=== PATIENT | female | born 1980 | race Two or more races ===

== ENCOUNTER 2016-06-09 08:01 | Outpatient (CLI) | payer MEDICAID ==
[~2016-06-09 08:01] MED LIST: FERRIC CARBOXYMALTOSE 750 MG in NORMAL SALINE 250 ML IV PRN; NORMAL SALINE 250 ML IV PRN
== END 2016-06-09 09:26 | disposition home or self-care (01) ==
LOC: II 08:01 → 5TH 08:10 → II 09:26
PROVIDERS: ATTEND Specialist
DX: D50.8 Other iron deficiency anemias (principal); K90.9 Intestinal malabsorption, unspecified
CPT/HCPCS: 96367; J7050; J1439

== ENCOUNTER 2016-06-16 08:16 | Outpatient (CLI) | payer MEDICAID ==
[2016-06-16 08:58] VITALS: BP 110/71
== END 2016-06-16 09:36 | disposition home or self-care (01) ==
LOC: II 08:16 → 5TH 08:19 → II 09:36
PROVIDERS: ATTEND Specialist
PROC: 3E033GC Introduction of Other Therapeutic Substance into Peripheral Vein, Percutaneous Approach (ICD-10-PCS; principal; 2016-06-16)
DX: D50.8 Other iron deficiency anemias (principal); K90.9 Intestinal malabsorption, unspecified
CPT/HCPCS: 96374; J7050; J1439; 96365; 96367

== ENCOUNTER 2016-07-14 21:33 | Emergency (ER) | payer MEDICAID ==
--- NOTE | 2016-07-15 00:37 | ER Document Report ---
ED General - General Chief Complaint: abdominal uribe Stated Complaint: ABDOMINAL PAIN Notes: Patient is a 36-year-old female who presents with concerns of lower abdominal pain and low back pain that has been present for the past 24 hours. Does describe the pain as a mild, dull, intermittent aching pain. Nothing improves or worsens her pain. States this feels exactly the same as when she began to have a miscarriage in the past and wanted to come to the emergency department to be sure that she was not actually having a miscarriage. She is not have any vaginal bleeding or discharge. No dysuria. She did make an appointment to see the OB clinic but they could not see her for one week so they came to the emergency department. TRAVEL OUTSIDE OF THE [place] IN LAST 30 DAYS: No - Related Data Allergies/Adverse Reactions: No Known Allergies Allergy (Verified 02/19/16 00:10) Past Medical History - General Information source: Patient - Social History Smoking Status: Never Smoker Frequency of alcohol use: None Drug Abuse: None Lives with: Spouse/Significant other Family History: CAD, Hyperlipidemia, Hypertension Patient has suicidal ideation: No Patient has homicidal ideation: No Renal/ Medical History: Denies: Hx Peritoneal Dialysis Musculoskeltal Medical History: Reports Hx Musculoskeletal Deformity Past Surgical History: Reports: Hx Orthopedic Surgery - left knee - Immunizations Hx Diphtheria, Pertussis, Tetanus Vaccination: No Review of Systems - Review of Systems Notes: Constitutional: Negative for fever. HENT: Negative for sore throat. Eyes: Negative for visual changes. Cardiovascular: Negative for chest pain. Respiratory: Negative for shortness of breath. Gastrointestinal: Positive for abdominal pain Genitourinary: Negative for dysuria. No vaginal bleeding Musculoskeletal: Positive for back pain. Skin: Negative for rash. Neurological: Negative for headaches, weakness or numbness. 10 point ROS negative except as marked above and in HPI. Physical Exam - Vital signs Vitals: Temp Pulse Resp BP Pulse Ox 97.7 F 71 18 110/66 99 07/14/16 21:42 07/14/16 21:42 07/14/16 21:42 07/14/16 21:42 07/14/16 21:42 Interpretation: Normal Notes: PHYSICAL EXAMINATION: GENERAL: Well-appearing, well-nourished and in no acute distress. HEAD: Atraumatic, normocephalic. EYES: Pupils equal round and reactive to light, extraocular movements intact, sclera anicteric, conjunctiva are normal. ENT: nares patent, oropharynx clear without exudates. Moist mucous membranes. NECK: Normal range of motion, supple without lymphadenopathy LUNGS: Breath sounds clear to auscultation bilaterally and equal. No wheezes rales or rhonchi. HEART: Regular rate and rhythm without murmurs ABDOMEN: Soft, nontender, normoactive bowel sounds. No guarding, no rebound. No masses appreciated. EXTREMITIES: Normal range of motion, no pitting or edema. No cyanosis. NEUROLOGICAL: No focal neurological deficits. Moves all extremities spontaneously and on command. PSYCH: Normal mood, normal affect. SKIN: Warm, Dry, normal turgor, no rashes or lesions noted. Course - Re-evaluation Re-evalutation: 07/15/16 00:36 Patient presents with mild lower abdominal cramping for the past 24 hours similar twinges had a miscarriage in the past. She has not had any vaginal bleeding. The bedside ultrasound shows intrauterine with no visible heart rate. I am likewise unable to Doppler a heart rate. Will send for transabdominal ultrasound to confirm what I suspect be a missed . 0240-ultrasound does confirm the patient likely has had a missed with no cardiac activity witnessed on formal ultrasound. This was discussed with the patient and her . I contacted Dr. De La Cruz the [employer] clinical operations leader who is requested that they follow-up in office on Sunday.patient has declined blood work saying she just was to go home. At this time will discharge with return precautions and follow-up recommendations. Verbal discharge instructions given a the bedside and opportunity for questions given. Medication warnings reviewed. Patient is in agreement with this plan and has verbalized understanding of return precautions and the need for primary care follow-up in the next 24-72 hours. - Vital Signs Vital signs: Temp Pulse Resp BP Pulse Ox 97.8 F 78 18 105/76 100 07/15/16 02:31 07/15/16 02:31 07/15/16 02:31 07/15/16 02:31 07/15/16 02:31 Discharge - Discharge Clinical Impression: Missed Condition: Fair Disposition: HOME, SELF-CARE Additional Instructions: Unfortunately, your no longer has a heart rate. This will go on to be a miscarriage. I am sorry for your loss. You may need assistance passing this . Please call the women's clinic at 8am on Sunday for follow-up. Please return if you develop severe abdominal pain, bleeding that goes through more than 2 pads for more than 2 hours, pass out, or have any other symptoms that are concerning to you. Please follow-up closely with your OBGYN regarding todays visit. Referrals: DUSTY DIXON MD [Primary Care Provider] - 07/17/16
[2016-07-15 02:32] VITALS: BP 105/76
== END 2016-07-15 02:36 | disposition home or self-care (01) ==
LOC: ER 21:33
DX: O02.1 Missed abortion (principal); R10.30 Lower abdominal pain, unspecified; M54.5 Low back pain
CPT/HCPCS: 76801; 99284

== ENCOUNTER 2016-07-20 16:23 | Observation (INO) | payer MEDICAID ==
[2016-07-20] MEDS ORDERED: RINGERS SOLUTION,LACTATED 1,000 ML IV PRN (16:44)
[2016-07-20] MEDS ORDERED: HYDROMORPHONE HCL INJ/PF 2 MG/ML AMPULE IV PRN (16:47)
[2016-07-20] MEDS ORDERED: ZOLPIDEM TARTRATE 5 MG TABLET PO PRN (17:21)
[2016-07-20 17:38] LABS: HEMATOCRIT 32.8 % (36.0-47.0); HEMOGLOBIN 11.5 g/dL (12.0-15.5); HGB HCT DIFFERENCE 1.7; MEAN CORPUSCULAR HEMOGLOBIN 29.3 pg (27.0-33.4); MEAN CORPUSCULAR HGB CONC 35.1 g/dL (32.0-36.0); MEAN CORPUSCULAR VOLUME 84 fl (80-97); RED BLOOD COUNT 3.92 10^6/uL (3.72-5.28); WHITE BLOOD COUNT 5.8 10^3/uL (4.0-10.5)
[2016-07-20] MEDS ORDERED: MISOPROSTOL 0.2 MG TABLET PV ONE (22:00)
[2016-07-21] MEDS: HYDROMORPHONE HCL INJ/PF 2 MG/ML AMPULE IV PRN ×2 (03:35→07:25)
[2016-07-21] MEDS ORDERED: MISOPROSTOL 0.2 MG TABLET PV ONE (06:45)
[2016-07-21] MEDS ORDERED: SUCCINYLCHOLINE CHLORIDE INJ 200 MG/10 ML VIAL ONE (07:49)
[2016-07-21] MEDS ORDERED: MISOPROSTOL 0.2 MG TABLET PR ONE (09:00)
[2016-07-21] MEDS ORDERED: PROPOFOL INJ 200 MG/20 ML VIAL IV ONE (13:22)
[2016-07-21] MEDS ORDERED: MIDAZOLAM 2 MG/2 ML INJ ONE (13:22)
[2016-07-21] MEDS ORDERED: DEXAMETHASONE SOD PHOSPHATE INJ 4 MG/1 ML VIAL ONE (13:22)
[2016-07-21] MEDS ORDERED: FENTANYL CITRATE INJ/PF 100 MCG/2 ML AMPUL ONE (13:22)
[2016-07-21] MEDS ORDERED: ONDANSETRON HCL INJ/PF 4 MG/2 ML SDV ONE (13:22)
[2016-07-21] MEDS ORDERED: DOXYCYCLINE HYCLATE 100 MG in DEXTROSE 5%-WATER 250 ML IV ONE (13:30)
[2016-07-21] MEDS ORDERED: MEPERIDINE HCL/PF INJ 25 MG/1 ML DISP.SYRIN IV PRN (13:51)
[2016-07-21] MEDS ORDERED: FENTANYL CITRATE INJ/PF 100 MCG/2 ML AMPUL IV PRN ×3 (13:51)
[2016-07-21] MEDS ORDERED: DIPHENHYDRAMINE HCL 50 MG/ML VIAL IV PRN (13:51)
[2016-07-21] MEDS ORDERED: PROMETHAZINE HCL INJ 25 MG/1 ML VIAL IV PRN ×2 (13:51)
[2016-07-21] MEDS ORDERED: METHYLERGONOVINE MALEATE INJ/PF 0.2 MG/1 ML AMPULE ONE (13:54)
--- NOTE | 2016-07-21 14:43 | OPERATIVE REPORT E ---
Operative Report NAME: PIOTR VILLA : 1980 AGE: 36Y DATE OF SURGERY: ROOM: 211 PREOPERATIVE DIAGNOSIS: Retained placenta. POSTOPERATIVE DIAGNOSIS: Retained placenta. OPERATION: Suction D and C. SURGEON: DUSTY DIXON M.D. FAX MACHINE REPAIRER: TOMMY ANESTHESIA: General endotracheal. ESTIMATED BLOOD LOSS: 50 mL; however, there were several hundred mL of blood loss prior to procedure. SPECIMEN TO PATHOLOGY: Placenta. FINDINGS: There was an enlarged uterus initially with placenta palpable at the cervical os. Postoperatively, the uterus involuted normally. There was a large amount of placental tissue that was removed during the D and C. PROCEDURE: After discussing risks, benefits, and alternatives of the procedure and obtaining informed consent, the patient was taken to the operating room, where general anesthesia was achieved. She was positioned in the dorsal lithotomy, prepped and draped in the usual standard fashion. The bladder was drained via in and out catheterization. Weighted speculum was placed in the posterior cul-de-sac. The anterior aspect of the cervix was grasped with a single tooth tenaculum. A small piece of placental tissue was noted at the cervical os, which was removed with a ringed forceps. A couple more pieces were removed in similar manner. Then, a #12 curved curette was used and suction D and C performed in the standard fashion. A large blunt curette was used to gently scrape the lining and a small amount of placental tissue on the right and the patient's right uterine sidewall was noted. Suction D and C was again performed, and then the cavity was clean. Methergine was given intramuscularly, and the uterus involuted. Bleeding was noted to be minimal at the end of the procedure. The patient was taken out of dorsal lithotomy, awakened from anesthesia and taken to recovery in stable condition. All sponge, needle, lap, and instrument counts were correct x2. DICTATING PHYSICIAN: DUSTY DIXON M.D. [id number] PHY#: [id number] ID: [id number] JOB#: [id number] ACCT: [id number] cc:DUSTY DIXON M.D. >
[2016-07-21] MEDS ORDERED: OXYCODONE-ACETAMINOPHEN 5-325 MG TABLET PO PRN ×2 (14:49→14:50)
[2016-07-21] MEDS ORDERED: IBUPROFEN 800 MG TABLET PO PRN (14:50)
--- NOTE | 2016-07-21 14:53 | HISTORY AND PHYSICAL E ---
History and Physical NAME: PIOTR VILLA : 1980 AGE: 36Y ADMITTED: 07/20/2016 ROOM: 211 INDICATION FOR ADMISSION: Missed . HISTORY OF PRESENT ILLNESS: The patient is a 36-year-old -0-1-4 with estimated gestational age of 15+ weeks by last menstrual period; however, in clinic she was found to have an intrauterine demise measuring 12 weeks 5 days by crown-rump length. However, on the ultrasound imaging the fetus was starting to curl inward slightly and may have been lost at a slightly later date than that. As noted, there had been no cardiac activity on ultrasound in the clinic. At the time of admission, the patient only had a small amount of spotting. She had a history of a loss where she hemorrhaged during the process and required emergent suction D and C for retained placenta. She had elected to have a more controlled delivery of this loss. On review of systems, she is otherwise without complaints. She had not been ill recently. PAST MEDICAL HISTORY: Unremarkable. PAST OB HISTORY: Four vaginal deliveries, one child with Down syndrome. She also had a history of a loss which would have been dated at around 15 weeks; however, was measured at about 13 weeks at the time of loss. She required suction D and C after that. ALLERGIES: Cinnamon. HABITS: The patient does not smoke, drink, or use illicit substances. FAMILY HISTORY: Noncontributory. OBJECTIVE: On admission, blood pressure was 114/67. She was afebrile. Heart rate was in the 70s. Weight 103 kg. In general, the patient appears comfortable and in no acute distress. Her abdomen was soft and nontender, and her cervix was closed on arrival. Extremities were nontender. ADMIT LABS: Hemoglobin 11.5, hematocrit 32.8, platelets 127,000. Hemoglobin A1c is 4.7. IMPRESSION: Missed AB at around 13 weeks gestation. PLAN: The patient is admitted for Cytotec induction and pain management. During this, she will have an IV in, and she is aware of the possibility of retained placenta requiring need for suction D and C. Will also send fetus for chromosomes, and maternal chromosomes given her recurrent loss. Will send also a lupus anticoagulant and anticardiolipin antibodies as well as antithrombin-III protein gene mutation factor, and Factor V Leiden. DICTATING PHYSICIAN: DUSTY DIXON M.D. [id number] PHY#: [id number] ID: [id number] JOB#: [id number] ACCT: [id number] cc:DUSTY DIXON M.D. >
--- NOTE | 2016-07-21 16:09 | PDOC PROGRESS REPORT ---
Subjective Progress Note for:: 07/21/16 Subjective:: seen at 1000am and again at 1200. Late entry note due to computer access issues. Physical Exam - Physical Exam Vital Signs: Temp Pulse Resp BP Pulse Ox 97.9 F 80 16 92/46 L 100 07/21/16 14:03 07/21/16 14:33 07/21/16 14:33 07/21/16 14:33 07/21/16 14:33 Intake & Output 07/20/16 07/21/16 07/22/16 06:59 06:59 06:59 Intake Total 600 300 Output Total 50 Balance 600 250 Weight 103 kg General appearance: PRESENT: no acute distress, well-developed, well-nourished Respiratory exam: PRESENT: clear to auscultation radha, symmetrical, unlabored. ABSENT: retraction, tachypnea Cardiovascular exam: PRESENT: RRR. ABSENT: diastolic murmur, rubs, systolic murmur Pulses: PRESENT: normal dorsalis pedis pul, +2 pedal pulses bilateral Vascular exam: PRESENT: normal capillary refill GI/Abdominal exam: PRESENT: normal bowel sounds, soft. ABSENT: distended, guarding, mass, organolmegaly, rebound, tenderness Rectal exam: PRESENT: deferred Extremities exam: PRESENT: full ROM. ABSENT: calf tenderness, clubbing, pedal edema Neurological exam: PRESENT: alert, awake, oriented to person, oriented to place , oriented to time, oriented to situation, CN II-XII grossly intact. ABSENT: motor sensory deficit Psychiatric exam: PRESENT: appropriate affect, normal mood. ABSENT: homicidal ideation, suicidal ideation Skin exam: PRESENT: dry, intact, warm. ABSENT: cyanosis, rash - Gynecological Exam Cervix: other - 2cm dilation, placenta stuck at os, fetus removed and sent to pathology. 800mcg cytotec placed per rectum then on re-eval 2 hours later approx 400ml of clot removed and significant bleeding with continued retained placenta. Result Laboratory Results: 07/20/16 17:20 07/20/16 07/20/16 17:20 17:20 WBC 5.8 RBC 3.92 Hgb 11.5 L Hct 32.8 L MCV 84 MCH 29.3 MCHC 35.1 RDW 18.0 H Plt Count 127 L Blood Type O POSITIVE Antibody Screen NEGATIVE Assessment & Plan - Diagnosis (1) Missed Is this a current diagnosis for this admission?: YesPlan: MAB with retained placenta. Reviewed significant ebl with pt and recommendations for Suction D&C and removal of placenta (fetus already delivered ). ATIII and Factor V and Prothrombin ordered. To OR for suction D&C. If stable post op then ok to discharge this evening. Will repeat CBC post op. - Time Time Spent with patient: 35 or more minutes Medications reviewed and adjusted accordingly: Yes Anticipated discharge: Home Within: within 48 hours - Inpatient Certification Medical Necessity: Need For IV Fluids, Need for Pain Control, Need for Surgery Post Hospital Care: D/C [place] Documentation
[2016-07-21] MEDS: METHYLERGONOVINE MALEATE 0.2 MG TABLET PO SCH ×2 (17:16→21:44)
[2016-07-21 17:56] LABS: HEMATOCRIT 31.3 % (36.0-47.0); HEMOGLOBIN 11.2 g/dL (12.0-15.5); HGB HCT DIFFERENCE 2.3; MEAN CORPUSCULAR HEMOGLOBIN 29.8 pg (27.0-33.4); MEAN CORPUSCULAR HGB CONC 35.8 g/dL (32.0-36.0); MEAN CORPUSCULAR VOLUME 83 fl (80-97); RED BLOOD COUNT 3.77 10^6/uL (3.72-5.28); RED CELL DISTRIBUTION WIDTH 17.4 % (11.5-14.0); WHITE BLOOD COUNT 8.2 10^3/uL (4.0-10.5)
[2016-07-21] MEDS ORDERED: DOXYCYCLINE HYCLATE 100 MG TABLET PO SCH (22:00)
[2016-07-21 23:09] VITALS: BP 109/63
--- NOTE | 2016-07-22 02:37 | PDOC DISCHARGE SUMMARY ---
General - Admit/Disc Date/PCP Admission Date/Primary Care Provider: 07/20/16 16:23 DUSTY DIXON MD Discharge Date: 07/21/16 - Discharge Diagnosis (1) Missed Is this a current diagnosis for this admission?: YesSummary: Admitted for MAB at 13-14wks. Cytotec given x 2 and fetus delivered. However, pt with retained placenta and hemorrhage and Required Suction D&C. She was stable postop. Minimal dizziness and stable VS. She desires to go home with close f/u with stable CBC. - Additional Information Resuscitation Status: Full Code Discharge Activity: Activity As Tolerated, No Driving, No Lifting/Push/Pulling, Pelvic Rest, Slowly Increase Activity, No tub bath, Walk Frequently Home Medications: No Home Medications 07/02/15 History of Present Illness Patient complains of: MAB at 13-14wks. Admitted for indxn with MAB History of Present Illness: PIOTR VILLA is a 36 year old female Hospital Course Hospital Course: Admitted for MAB at 13-14wks. Cytotec given x 2 and fetus delivered. However, pt with retained placenta and hemorrhage and Required Suction D&C. She was stable postop. Minimal dizziness and stable VS. She desires to go home with close f/u with stable CBC. Scant bleeding after Suction D&C to remove retained placenta Physical Exam - Physical Exam Vital Signs: Temp Pulse Resp BP Pulse Ox 98.6 F 78 18 109/63 96 07/21/16 21:14 07/21/16 21:14 07/21/16 21:14 07/21/16 21:14 07/21/16 21:14 Intake & Output 07/20/16 07/21/16 07/22/16 06:59 06:59 06:59 Intake Total 600 400 Output Total 50 Balance 600 350 Weight 103 kg General appearance: PRESENT: no acute distress, well-developed, well-nourished Respiratory exam: PRESENT: clear to auscultation radha, symmetrical, unlabored. ABSENT: retraction Cardiovascular exam: PRESENT: RRR. ABSENT: diastolic murmur, rubs, systolic murmur Pulses: PRESENT: normal dorsalis pedis pul, +2 pedal pulses bilateral GI/Abdominal exam: PRESENT: normal bowel sounds, soft. ABSENT: distended, guarding, mass, organolmegaly, rebound, tenderness Rectal exam: PRESENT: deferred Extremities exam: ABSENT: calf tenderness, clubbing Neurological exam: PRESENT: alert, awake, oriented to person, oriented to place , oriented to time, oriented to situation, CN II-XII grossly intact. ABSENT: motor sensory deficit Psychiatric exam: PRESENT: appropriate affect, normal mood. ABSENT: homicidal ideation, suicidal ideation Skin exam: PRESENT: dry, intact, warm. ABSENT: cyanosis, rash - Gynecological Exam Cervix: other - 2cm dilation, placenta stuck at os, fetus removed and sent to pathology. 800mcg cytotec placed per rectum then on re-eval 2 hours later approx 400ml of clot removed and significant bleeding with continued retained placenta. Result Laboratory Results: 07/21/16 17:45 07/21/16 17:45 WBC 8.2 RBC 3.77 Hgb 11.2 L Hct 31.3 L MCV 83 MCH 29.8 MCHC 35.8 RDW 17.4 H Plt Count 124 L Plan Discharge Plan: Discharge to home with f/u on Sunday. Methergine, Percocet, Doxycycline given for discharge Time Spent: Less than 30 Minutes
[2016-07-24 09:37] LABS: PTT-LA 40.4 sec (0.0-43.6); THROMBIN TIME 14.1 sec (0.0-20.9)
[2016-07-24 10:46] LABS: DILUTE RUSSELL VIPOR VENOM 45.6 sec (0.0-44.0); DRVVT MIX 42.1 sec (0.0-44.0); LUPUS PANEL INTERPRETATION Comment: (.)
[2016-07-25 07:09] LABS: ANTITHROMBIN III ACTIVITY 106 % (75-135)
== END 2016-07-21 21:48 | disposition home or self-care (01) ==
LOC: 2N 16:23 → INTOOBSV 16:23
PROVIDERS: ADMIT Specialist; ATTEND Specialist
PROC: 10D17ZZ Extraction of Products of Conception, Retained, Via Natural or Artificial Opening (ICD-10-PCS; principal; 2016-07-21 13:15)
DX: O02.1 Missed abortion (principal); R42 Dizziness and giddiness; O26.21 Pregnancy care for patient with recurrent pregnancy loss, first trimester; Z3A.14 14 weeks gestation of pregnancy
CPT/HCPCS: 59820; 81240; 86147 ×3; 86900; 86901; 36415 ×2; 86850; 84702; 85027 ×2; 85300; 86225; 83520; 86235 ×4; 83036; 81241; 88230; 88262 ×2; 88233; 88305 ×2; G0378; G0379; J2250; J1100; J3490 ×2; J3010; J2210; J1170; J0330; J2405; J7120; J2704; 940

== ENCOUNTER → 2017-12-11 | Outpatient (CLI) | payer OTHER ==
[2017-12-11 15:32] LABS: ABSOLUTE EOSINOPHILS # (AUTO) 0.1 10^3/uL (0.0-0.6); ABSOLUTE LYMPHOCYTES (AUTO) 2.3 10^3/uL (0.5-4.7); ABSOLUTE MONOCYTES (AUTO) 0.3 10^3/uL (0.1-1.4); ABSOLUTE NEUT (AUTO) 3.8 10^3/uL (1.7-8.2); BASOPHILS % (AUTO) 0.7 % (0-2); EOSINOPHILS % (AUTO) 1.6 % (0-6); HEMATOCRIT 36.9 % (36.0-47.0); HEMOGLOBIN 12.7 g/dL (12.0-15.5); LYMPHOCYTES % (AUTO) 35.3 % (13-45); MEAN CORPUSCULAR HEMOGLOBIN 28.9 pg (27.0-33.4); MEAN CORPUSCULAR HGB CONC 34.5 g/dL (32.0-36.0); MEAN CORPUSCULAR VOLUME 84 fl (80-97); MONOCYTES % (AUTO) 4.4 % (3-13); PLATELET COUNT 164 10^3/uL (150-450); RED CELL DISTRIBUTION WIDTH 14.9 % (11.5-14.0); TOTAL CELLS COUNTED % (AUTO) 100 %; WHITE BLOOD COUNT 6.6 10^3/uL (4.0-10.5)
[2017-12-11 15:58] LABS: ALANINE AMINOTRANSFERASE 24 U/L (9-52); ALBUMIN 4.3 g/dL (3.5-5.0); ALKALINE PHOSPHATASE 38 U/L (38-126); ANION GAP 8 (5-19); ASPARTATE AMINO TRANSFERASE 18 U/L (14-36); BILIRUBIN,DIRECT 0.4 mg/dL (0.0-0.4); BILIRUBIN,TOTAL 0.7 mg/dL (0.2-1.3); BLOOD UREA NITROGEN 14 mg/dL (7-20); CALCIUM 9.4 mg/dL (8.4-10.2); CARBON DIOXIDE 26 mmol/L (22-30); CHLORIDE 108 mmol/L (98-107); CHOLESTEROL 222.05 mg/dL (0-200); GLUCOSE 89 mg/dL (75-110); POTASSIUM 4.8 mmol/L (3.6-5.0); SODIUM 141.6 mmol/L (137-145); TOTAL PROTEIN 7.6 g/dL (6.3-8.2); TRIGLYCERIDES 110 mg/dL (<150)
[2017-12-11 16:08] LABS: DIRECT LDL 146 mg/dL (<100)
== END ==
LOC: CCC 14:27
DX: Z13.9 Encounter for screening, unspecified (principal); R53.83 Other fatigue
CPT/HCPCS: 36415; 80053; 80061; 82607; 82746; 83036; 84443; 84702; 85025

== ENCOUNTER → 2018-12-31 | Outpatient (CLI) | payer OTHER | LOC: CCC 14:13 | DX: R53.83 Other fatigue (principal) | CPT/HCPCS: 36415; 86200; 86430; 86900; 86901 ==